=== PATIENT | male | born 2000 | race African-American/Black ===

== ENCOUNTER 2025-07-25 01:14 | Inpatient (IN) | payer OTHER ==
[~2025-07-25] VITALS: Ht 193 cm; Wt 143.5 kg
[2025-07-25] MEDS ORDERED: ZOLPIDEM TARTRATE 10 MG TABLET PO PRN (02:00)
[2025-07-25 04:00] VITALS: BP 124/61; PULSE 61; RESP 18; TEMP 97.7; O2SAT 99
[2025-07-25] MEDS ORDERED: INFLUENZA VIRUS VACCINE TVS (6MO+) 2025-26/PF 45 MCG/0.5 ML SYRINGE IM. ONE (06:30)
[2025-07-25] MEDS ORDERED: NICOTINE POLACRILEX 4 MG LOZENGE PO PRN (07:15)
[2025-07-25] MEDS ORDERED: ALBUTEROL SULFATE HFA 90 MCG/PUFF 8 GM INHALER IH PRN (07:15)
[2025-07-25] MEDS ORDERED: LOPERAMIDE HCL 2 MG CAPSULE PO PRN (07:15)
[2025-07-25] MEDS ORDERED: ONDANSETRON 4 MG TABLET PO PRN (07:15)
[2025-07-25] MEDS ORDERED: MAGNESIUM HYDROXIDE SUSPENSION 30 ML UDCUP PO PRN (07:15)
[2025-07-25] MEDS ORDERED: BACITRACIN 28 GM OINTMENT TP PRN (07:15)
[2025-07-25] MEDS ORDERED: MAG HYDROX/ALUMINUM HYD/SIMETH ES 30 ML SUSPENSION UDCUP PO PRN (07:15)
[2025-07-25] MEDS ORDERED: IBUPROFEN 600 MG TABLET PO PRN (07:15)
[2025-07-25] MEDS ORDERED: PETROLATUM,WHITE 28 GM JELLY TP PRN (07:15)
[2025-07-25] MEDS ORDERED: OMEPRAZOLE 20 MG CAPSULE PO PRN (07:15)
[2025-07-25] MEDS ORDERED: ACETAMINOPHEN 325 MG TABLET PO PRN (07:15)
[2025-07-25] MEDS ORDERED: DOCUSATE SODIUM 100 MG CAPSULE PO PRN (07:15)
[2025-07-25] MEDS ORDERED: BENZOCAINE/MENTHOL [CEPACOL] LOZENGE PO PRN (07:15)
[2025-07-25 08:36] VITALS: BP 119/82; PULSE 76; RESP 18; TEMP 97.3; O2SAT 100
[2025-07-25] MEDS: DIVALPROEX SODIUM 500 MG DR TABLET PO SCH (16:44)
[2025-07-25] MEDS: LITHIUM CARBONATE 300 MG CAPSULE PO SCH (16:44)
[2025-07-25 18:42] VITALS: BP 119/82; PULSE 76; RESP 18; TEMP 97.3; O2SAT 100
[2025-07-25 20:09] VITALS: BP 128/77; PULSE 82; RESP 18; TEMP 97.8; O2SAT 98
[2025-07-26 08:06] VITALS: BP 125/80; PULSE 90; RESP 18; TEMP 97.2; O2SAT 98
[2025-07-26 09:10] LABS: PLATELET COUNT (AUTO) 275 K/uL (150-450); RED BLOOD CELL COUNT(AUTO) 5.13 MIL/uL (4.50-5.90); RED CELL DISTRIBUTION WIDTH 13.9 % (11.5-14.5); WHITE BLOOD COUNT (AUTO) 5.1 K/uL (4.5-11.0)
[2025-07-26 09:31] LABS: ASPARTATE AMINOTRANSFERASE 20 U/L (15-37); CALCIUM, TOTAL 9.0 mg/dL (8.8-10.5); CHOL/HDL RATIO 2.2 (4.2-7.3); CREATININE 0.80 mg/dL (0.60-1.30); GLOMERULAR FILTR. RATE CALC > 60 mL/min (>60); GLUCOSE,RANDOM 91 mg/dL (70-110); LDL CHOL (CALC.) 44 mg/dL (0-130); SODIUM SERUM 138 mmol/L (136-145); TOTAL PROTEIN, SERUM 7.3 g/dL (6.4-8.2); UREA NITROGEN, BLOOD 10 mg/dL (7-18)
[2025-07-26 20:10] VITALS: BP 110/77; PULSE 69; RESP 17; TEMP 98.4; O2SAT 98
[2025-07-27 02:07] LABS: HEPATITIS C AB (EIA) Non Reactive (Non Reactive)
[2025-07-27 08:10] VITALS: BP 121/80; PULSE 86; RESP 18; TEMP 97.8; O2SAT 94
[2025-07-27] MEDS ORDERED: LITH300C3 PO (13:15)
[2025-07-27] MEDS ORDERED: DIVA-112 PO (13:16)
== END 2025-07-27 15:34 | disposition home or self-care (01) | DRG 881 ==
LOC: B2S 01:55
PROVIDERS: ADMIT Psychiatry & Neurology Psychiatry; ATTEND Psychiatry & Neurology Psychiatry
DX: F32.9 Major depressive disorder, single episode, unspecified (principal); R45.851 Suicidal ideations; F41.9 Anxiety disorder, unspecified; G47.00 Insomnia, unspecified; K59.00 Constipation, unspecified; K21.9 Gastro-esophageal reflux disease without esophagitis; Z72.0 Tobacco use; E66.9 Obesity, unspecified; Z68.38 Body mass index [BMI] 38.0-38.9, adult
CPT/HCPCS: 80053; 80061; 83036; 84436; 84443; 85025; 86803; 87340